=== PATIENT | male | born 1955 | race Caucasian/White ===

== ENCOUNTER 2018-11-29 08:34 | Emergency (ER) | payer BC ==
[~2018-11-29] VITALS: Ht 170.2 cm; Wt 72.6 kg
[2018-11-29] MEDS ORDERED: AMPH15TA2 PO (08:40)
[2018-11-29] MEDS ORDERED: IV NORMAL SALINE 1000 ML BAG IV ONE (09:00)
[2018-11-29 09:21] LABS: BASOPHILS # (AUTO) 0.1 K/uL (0.0-8.0); EOSINOPHILS # (AUTO) 0.3 K/uL (0.0-0.7); EOSINOPHILS % (AUTO) 5.2 % (0.0-7.0); HEMATOCRIT 43.3 % (36.7-47.1); HEMOGLOBIN 14.3 g/dL (12.5-16.3); LYMPHOCYTES # (AUTO) 1.6 K/uL (20.0-40.0); LYMPHOCYTES % (AUTO) 31.3 % (20.5-51.5); MEAN CORPUSCULAR HEMOGLOBIN 28.6 uug (23.8-33.4); MEAN CORPUSCULAR HGB CONC 33 g/dL (32.5-36.3); MEAN CORPUSCULAR VOLUME 86.6 fL (73.0-96.2); MONOCYTES # (AUTO) 0.4 K/uL (2.0-10.0); MONOCYTES % (AUTO) 7.4 % (0.0-11.0); NEUTROPHILS # (AUTO) 2.9 K/uL (1.8-8.9); NEUTROPHILS % (AUTO) 55.1 % (38.5-71.5); PLATELET COUNT (AUTO) 235 K/uL (152-348); WHITE BLOOD COUNT (AUTO) 5.2 K/uL (3.6-10.2)
[2018-11-29 09:25] LABS: CREATININE 0.9 mg/dL (0.6-1.3)
[2018-11-29 09:29] LABS: BILIRUBIN,DIRECT 0.1 mg/dL (0.0-0.2); BILIRUBIN,TOTAL 0.3 mg/dL (0.2-1.0)
[2018-11-29] MEDS ORDERED: KETOROLAC TROMETHAMINE 60 MG INJ IM ONE ×2 (10:25→10:30)
--- NOTE | 2018-11-29 10:32 | NUR ---
Patient is resting comfortably on gurney while talking to his visitors, SHAREE.
--- NOTE | 2018-11-29 11:23 | NUR ---
No urine specimen still, notified.
--- NOTE | 2018-11-29 11:24 | NUR ---
Patient discharged to home in stable conditon. Written and verbal after care instructions given to patient and family. Patient & family member verbalized understanding & compliance of instructions.
== END 2018-11-29 11:27 | disposition home or self-care (01) ==
LOC: ER 08:34
DX: S52.502A Unspecified fracture of the lower end of left radius, initial encounter for closed fracture (principal); S52.612A Displaced fracture of left ulna styloid process, initial encounter for closed fracture; S09.90XA Unspecified injury of head, initial encounter; Z79.899 Other long term (current) drug therapy; W05.2XXA Fall from non-moving motorized mobility scooter, initial encounter; Y93.89 Activity, other specified; Y92.89 Other specified places as the place of occurrence of the external cause; Y99.8 Other external cause status
CPT/HCPCS: 29125; 36415; 70450; 73110; 73130; 80048; 80076; 84484; 85025; 85730; 93005; 96372; 99284; J1885; 70030-TC; A4663; J7030